=== PATIENT | female | born 1960 | race Caucasian/White ===

== ENCOUNTER 2017-03-13 19:46 | Inpatient (IN) ==
[2017-03-13] MEDS ORDERED: NS 1,000 ML IV ONE (20:38)
--- NOTE | 2017-03-13 21:00 | PROVIDER DOCUMENTATION ---
HPI-Abdominal Pain/GI Problem - General Chief Complaint: Rectal Bleeding Stated Complaint: RECTAL BLEEDING Time Seen by Provider: 03/13/17 20:20 Source: patient Allergies/Adverse Reactions: Patient Allergies Allergy/AdvReac Type Severity Reaction Status Date / Time Sulfa (Sulfonamide Allergy SWELLING Verified 02/02/15 21:30 Antibiotics) Home Medications: Home Medication List Medication Instructions Recorded Confirmed Last Taken Type Estrogens, Esterified [Menest] 0.625 mg PO HS 02/02/15 02/02/15 02/01/15 History Losartan Potassium 100 mg PO HS 02/02/15 02/02/15 02/01/15 History Clopidogrel Bisulfate [Clopidogrel] 03/13/17 Unknown History - History of Present Illness-ABD Nature of Presenting Problems: 56 year old WF presents today with c/o LLQ abd pain with diarrhea x 4 today, 2 of which had jenny, bright red blood mixed in with it. Pt reports the abdominal pain is crampy in nature, non-radiating and worsens before the diarrhea. Pt reports associated fatigue since onset of diarrhea, denies fever/chills/nausea/ vomiting. Abdominal Pain Onset Location: reports: LLQ Pain Radiation: reports: no radiation Quality of Pain: reports: cramping Severity in ED: reports: mild Onset/Duration: reports: this morning Timing: reports: still present, improving, intermittent, getting worse Exposure to sick contacts?: No Modifying Factors: improves with: nothing Associated Symptoms: reports: diarrhea, weakness Last BM: this afternoon Dark Stools Present?: reports: none noticed, bright red blood. denies: maroon, black, tarry Rectal Bleeding: reports: blood mixed with stool, bloody diarrhea # of Diarrhea Episodes: 4 Rectal Pain: reports: none # of Vomiting Episodes: 0 Review of Systems - Adult - REVIEW OF SYSTEMS - ADULT Constitutional: reports: see HPI, ashlee. denies: chills, fever Eyes: reports: no symptoms reported. denies: discharge, blurred vision, double vision Ears, Nose, Mouth & Throat: reports: no symptoms reported. denies: ear discharge, ear pain, nose pain, loose teeth, throat pain, throat swelling Cardiovascular: reports: no symptoms reported. denies: chest pain, palpitations , syncope Respiratory: reports: no symptoms reported. denies: chronic cough, cough, shortness of breath, wheezing Gastrointestinal: reports: see HPI, abdominal pain, diarrhea, rectal bleeding. denies: hematemesis, constipation, difficulty swallowing, frequent heartburn, nausea, poor appetite, vomiting Genitourinary: reports: no symptoms reported. denies: dysuria, hematuria, urgency Musculoskeletal: reports: no symptoms reported. denies: bone pain, joint pain, joint swelling, neck pain Integumentary: reports: no symptoms reported. denies: hives, itching, skin sores/ulcer Neurological: reports: no symptoms reported. denies: ataxia, numbness, paresthesia, syncope Psychiatric: reports: no symptoms reported Endocrine: reports: no symptoms reported Hematologic/Lymphatic: reports: no symptoms reported Allergic/Immunologic: reports: no symptoms reported All Other Systems: Reviewed and Negative Past History - Adult - PAST MEDICAL HISTORY-ADULT Review of Records: reports: Old Records Reviewed, Nursing Assessment Review, Medications Reviewed, Social history reviewed & non-contributory. Major Childhood Illnesses: reports: denies history Cardiovascular: reports: HTN Respiratory: reports: denies history Gastrointestinal: reports: polyps Obstetrical/Gynecological: reports: denies history Genitourinary: reports: denies history Musculoskeletal: reports: denies history Neurological: reports: CVA Endocrine/Immune: reports: denies history Other Conditions: reports: denies history - PRIOR SURGERIES/PROCEDURES Surgical/Procedure History: reports: hysterectomy, other (sx for brain aneurysm) - IMMUNIZATION STATUS Childhood Immunizations: See Nurse Assessment Flu Vaccine: See Nurse Assessment - FAMILY HISTORY Family History: reviewed, not pertinent - SOCIAL HISTORY Smoking: quit greater than 1 year, cigarettes Substance Use: none/never Alcohol Use Frequency: never Physical Exam-General - PHYSICAL EXAM-ADULT Initial Vital Signs Reviewed: Yes - CONSTITUTIONAL General Appearance: appears well, alert, no apparent distress. negative: mild distress, moderate distress, severe distress - EYES Eyes: pink conjunctivae. negative: conjuctival exudate, pale conjunctivae, photophobia, sclera injected, scleral icterus, subconjunctival hemorrhage - HEAD, EARS, NOSE, MOUTH & THROAT HENMT: normocephalic/atraumatic, moist mucous membranes, normal ENT inspection - NECK Neck: non-tender, full range of motion, supple, normal inspection. negative: C- spine tenderness, limited range of motion, tender lateral, tender midline - RESPIRATORY Respiratory: chest non-tender, lungs clear, normal breath sounds, no pleuratic chest pain, no respiratory distress, no accessory muscle use. negative: respiratory distress, decreased breath sounds, accessory muscle use, crackles, rales, rhonchi, stridor, wheezing - CARDIOVASCULAR Cardiovascular: normal peripheral pulses, regular rate, rhythm - GASTROINTESTINAL (ABDOMEN) Abdominal Exam: normal bowel sounds, soft, tenderness (LLQ). negative: non tender, distended, guarding, rigid, rebound, hernia, mass, hepatomegaly, spleenomegaly, McBurney's point tenderness, Martinez's sign, obturator sign, prominent aortic pulsations, psoas, Rovsing's sign - MUSCULOSKELETAL Back Exam: normal inspection, no CVA tenderness, no vertebral tenderness. negative: CVA tenderness, decreased range of motion, swelling, vertebral tenderness Extremity: normal range of motion, non-tender, normal gait, normal inspection, no pedal edema, no calf tenderness, normal capillary refill Peripheral Pulses: radial (R): 3+, radial (L): 3+, dorsalis-pedis (R): 3+, dorsalis-pedis (L): 3+ - SKIN Integumentary: normal color, normal turgor, warm/dry. negative: pallor, petechiae, purpura, rash - NEUROLOGIC Neurologic: grossly normal, no motor/sensory deficits - PSYCHIATRIC Psych/Mental Status: normal mood/affect, normal thought content, normal thought process, oriented x 3 Progress - PLAN OF CARE/RESULTS Progress/Plan/Lab Results: Vital Signs - 8 hr 03/13/17 20:03 Temperature 98 F Pulse Rate 84 Respiratory Rate 18 Blood Pressure 145/94 O2 Sat by Pulse Oximetry 98 Orders Category Date Time Status Orthostatic Vital Signs NOW Care 03/13/17 20:38 Active Saline Loc DIRECTED Care 03/13/17 20:[address] ABD/PELVIS W/ IV CONT ONLY [CT] Stat Exams 03/13/17 20:38 Ordered CBC WITH ELECTRONIC DIFF [HEME] Stat Lab 03/13/17 20:37 Ordered COMPREHENSIVE METABOLIC PANEL [CHEM] Stat Lab 03/13/17 20:37 Ordered OCCULT BLOOD SCREEN STOOL PL Stat Lab 03/13/17 20:37 Uncollected PROTIME WITH INR PL [COAG] Stat Lab 03/13/17 20:[address] [COAG] Stat Lab 03/13/17 20:37 Ordered TYPE & SCREEN [BBK] Stat Lab 03/13/17 20:37 Ordered 0.9% Sodium Chloride Inj [Ns] 1,000 ml Med 03/13/17 20:38 Active IV 999 mls/hr Laboratory Tests 03/13/17 03/13/17 03/13/17 20:37 20:37 20:37 WBC 9.43 RBC 4.45 Hgb 13.3 Hct 38.7 MCV 87.0 MCH 29.9 MCHC 34.4 RDW Std Deviation 13.1 Plt Count 303 MPV 9.1 Immature Gran % (Auto) 0.1 Neut % (Auto) 73.4 Lymph % (Auto) 20.3 L [place] % (Auto) 5.8 Eos % (Auto) 0.2 Baso % (Auto) 0.2 Immature Gran # (Auto) 0.01 Neut # (Auto) 6.92 H Lymph # (Auto) 1.91 [place] # (Auto) 0.55 Eos # (Auto) 0.02 Baso # (Auto) 0.02 PT 12.6 INR 0.91 APTT (Factor Assay) 29.2 Sodium 136 Potassium 3.8 Chloride 97 L Carbon Dioxide 24 L Anion Gap 16 BUN 11 Creatinine 0.6 Estimated GFR/1.73 m2 > 60 BUN/Creatinine Ratio 18 Glucose 117 H Calculated Osmolality 272 Calcium 10.0 Total Bilirubin 0.40 AST 22 ALT 23 Alkaline Phosphatase 88 Total Protein 7.7 Albumin 4.4 Globulin 3.0 Albumin/Globulin Ratio 1.0 Blood Type 03/13/17 20:37 WBC RBC Hgb Hct MCV MCH MCHC RDW Std Deviation Plt Count MPV Immature Gran % (Auto) Neut % (Auto) Lymph % (Auto) [place] % (Auto) Eos % (Auto) Baso % (Auto) Immature Gran # (Auto) Neut # (Auto) Lymph # (Auto) [place] # (Auto) Eos # (Auto) Baso # (Auto) PT INR APTT (Factor Assay) Sodium Potassium Chloride Carbon Dioxide Anion Gap BUN Creatinine Estimated GFR/1.73 m2 BUN/Creatinine Ratio Glucose Calculated Osmolality Calcium Total Bilirubin AST ALT Alkaline Phosphatase Total Protein Albumin Globulin Albumin/Globulin Ratio Blood Type A POSITIVE Orders Category Date Time Status Orthostatic Vital Signs NOW Care 03/13/17 20:38 Active Saline Loc DIRECTED Care 03/13/17 20:[address] ABD/PELVIS W/ IV CONT ONLY [CT] Stat Exams 03/13/17 20:38 Taken CBC WITH ELECTRONIC DIFF [HEME] Stat Lab 03/13/17 20:37 Completed COMPREHENSIVE METABOLIC PANEL [CHEM] Stat Lab 03/13/17 20:[address] Com[address]IME WITH INR PL [COAG] Stat Lab 03/13/17 20:[address] [COAG] Stat Lab 03/13/17 20:37 Completed TYPE & SCREEN [BBK] Stat Lab 03/13/17 20:37 Results UA NIMS W/REFLEX CULT PL [URINALYSIS] Stat Lab 03/13/17 23:13 Ordered 0.9% Sodium Chloride Inj [Ns] 1,000 ml Med 03/13/17 20:38 Discontinued IV 999 mls/hr EKG [EKG] Stat Ther 03/13/17 23:13 Ordered Vital Signs - 24 hr 03/13/17 20:03 03/13/17 21:09 Temperature 98 F Pulse Rate 84 73 Respiratory Rate 18 Blood Pressure 145/94 161/88 O2 Sat by Pulse Oximetry 98 Laboratory Tests 03/13/17 03/13/17 03/13/17 20:37 20:37 20:37 WBC 9.43 RBC 4.45 Hgb 13.3 Hct 38.7 MCV 87.0 MCH 29.9 MCHC 34.4 RDW Std Deviation 13.1 Plt Count 303 MPV 9.1 Immature Gran % (Auto) 0.1 Neut % (Auto) 73.4 Lymph % (Auto) 20.3 L [place] % (Auto) 5.8 Eos % (Auto) 0.2 Baso % (Auto) 0.2 Immature Gran # (Auto) 0.01 Neut # (Auto) 6.92 H Lymph # (Auto) 1.91 [place] # (Auto) 0.55 Eos # (Auto) 0.02 Baso # (Auto) 0.02 PT 12.6 INR 0.91 APTT (Factor Assay) 29.2 Sodium 136 Potassium 3.8 Chloride 97 L Carbon Dioxide 24 L Anion Gap 16 BUN 11 Creatinine 0.6 Estimated GFR/1.73 m2 > 60 BUN/Creatinine Ratio 18 Glucose 117 H Calculated Osmolality 272 Calcium 10.0 Total Bilirubin 0.40 AST 22 ALT 23 Alkaline Phosphatase 88 Total Protein 7.7 Albumin 4.4 Globulin 3.0 Albumin/Globulin Ratio 1.0 Urine Source Urine Color Urine Clarity Urine pH Ur Specific [place] Urine Protein Urine Ketones Urine Blood Urine Nitrite Urine Bilirubin Urine Urobilinogen Urine Microscopic RBC Urine WBC Urine Microscopic WBC Ur Epithelial Cells Urine Bacteria Urine Glucose Blood Type Antibody Screen 03/13/17 03/13/17 20:37 21:00 WBC RBC Hgb Hct MCV MCH MCHC RDW Std Deviation Plt Count MPV Immature Gran % (Auto) Neut % (Auto) Lymph % (Auto) [place] % (Auto) Eos % (Auto) Baso % (Auto) Immature Gran # (Auto) Neut # (Auto) Lymph # (Auto) [place] # (Auto) Eos # (Auto) Baso # (Auto) PT INR APTT (Factor Assay) Sodium Potassium Chloride Carbon Dioxide Anion Gap BUN Creatinine Estimated GFR/1.73 m2 BUN/Creatinine Ratio Glucose Calculated Osmolality Calcium Total Bilirubin AST ALT Alkaline Phosphatase Total Protein Albumin Globulin Albumin/Globulin Ratio Urine Source CLEAN CATCH Urine Color YELLOW Urine Clarity CLEAR Urine pH 7.0 Ur Specific [place] 1.005 Urine Protein NEGATIVE Urine Ketones NEGATIVE Urine Blood TRACE Urine Nitrite NEGATIVE Urine Bilirubin NEGATIVE Urine Urobilinogen NORMAL Urine Microscopic RBC <10 Urine WBC NEGATIVE Urine Microscopic WBC <10 Ur Epithelial Cells <10 Urine Bacteria 2+ Urine Glucose NEGATIVE Blood Type A POSITIVE Antibody Screen NEGATIVE 2358: Dr. Mirza spoke with Dr. Vásquez, he will accept transfer to and will call back. Result Diagrams: 03/13/17 20:37 03/13/17 20:37 - REASSESSMENT Reassessment #1 Time Reassessed: 23:16 Status: other (Notified patient of CT findings and need to transfer for specialty care, agrees.) Reassessment #2 Time Reassessed: 23:42 Status: other (notified patinet of discussion with vascular surgeon/admission to hospitalist. Pt verbalized understanding.) - CT/MRI 1 CT Study: Abdomen, Pelvis Impression: Abnormal (Received call from Bindu with [facility]: non- occlusive thrombus within portal venous system straddeling the biforcation; see report for additional findings.) - CONSULTS/PCP/HOSPITALIST Notification #1 *Consult/PCP/Hospitalist*: Dr. Saleh Time Discussed: 23:15 Consult Disposition: other (Reviewed H&P, CT findings, recommends transfer to [facility].) #2 Consult: Dr. Trevizo-Vascular Surgeon [facility] Time Discussed: 23:41 Reason/Comments: Dr. Mirza spoke with Dr. Trevizo Consult Disposition: other (this is not operable, admit to hospitalist for heparin therapy.) #3 Consult: Dr. Mirza spoke with Hospitalist from [facility], refused transfer, admit your hosp Time Discussed: 23:54 Departure - Departure Time of Disposition Decision: 23:15 DIAGNOSIS: Thrombus, Rectal bleeding Abdominal pain Qualifiers: Abdominal location: left lower quadrant Qualified Code(s): R10.32 - Left lower quadrant pain Diarrhea Qualifiers: Diarrhea type: functional diarrhea Qualified Code(s): K59.1 - Functional diarrhea Disposition: ADMITTED INPATIENT 09 Certified Medical Emergency: Emergent Condition: Stable Referrals and Follow-Ups: Alejo Arroyo MD [Primary Care Provider] - - Critical Care Note This patient required my direct & personal management of CC.: No Attestation - Physician/ MARY Attestation Patient care was provided by Advanced Practice Provider:: Yes Advanced Practice Provider:: Adam Dillard Advanced Practice Provider documentation review:: The Mid-level provider documentation, treatment plan and medical decision making was reviewed by the physician who agrees with all treatment and medical decision making by the MLP.
[2017-03-13 21:20] LABS: MANUAL DIFF NEEDED? NO
[2017-03-13 21:23] LABS: BASO% 0.2 % (0.0-0.8); EOS# 0.02 X1000 (0.0-0.7); EOS% 0.2 % (0.0-10.0); HEMATOCRIT 38.7 % (37.0-47.0); HEMOGLOBIN 13.3 g/dL (12.0-16.0); IMM GRAN# 0.01 X1000 (0.0-0.04); IMM GRAN% 0.1 % (0.0-0.5); LYMPH# 1.91 X1000 (1.2-3.4); LYMPH% 20.3 % (20.5-51.1); MCH 29.9 PG (27-31); MCHC 34.4 g/dL (33-37); MONO# 0.55 X1000 (0.11-0.59); MONO% 5.8 % (1.7-9.3); MPV 9.1 FL (7.4-10.4); NEUT% 73.4 % (42.2-75.2); PLT 303 X1000 (130-400); RBC 4.45 XMIL (4.2-5.4)
[2017-03-13 21:59] LABS: AGAP 16; ALBUMIN 4.4 g/dL (3.5-5.0); ALKALINE PHOSPHATASE 88 U/L (32-104); BUN 11 mg/dL (8-22); CHLORIDE 97 mmol/L (98-107); COSMO 272; GOT 22 U/L (10-30); GPT 23 U/L (10-36); POTASSIUM 3.8 mmol/L (3.5-5.1); SODIUM 136 mmol/L (136-145); TCO2 24 mmol/L (25-35); TOTAL PROTEIN 7.7 g/dL (6.3-8.3)
[2017-03-13 22:12] LABS: INR 0.91 (0.86-1.15); PROTIME 12.6 Seconds (12.1-15.5)
[2017-03-13 22:13] LABS: PTT PL 29.2 Seconds (22.6-43.9)
[2017-03-13 23:56] LABS: BILIRUBIN URINE NEGATIVE (NEGATIVE); BLOOD URINE TRACE (NEGATIVE); CLARITY CLEAR (CLEAR); COLOR YELLOW; GLUCOSE URINE NEGATIVE (NEGATIVE); LEUKOCYTES URINE NEGATIVE (NEGATIVE); NITRITE URINE NEGATIVE (NEGATIVE); PROTEIN URINE NEGATIVE (NEGATIVE); SP GRAVITY URINE 1.005; UROBILINOGEN URINE NORMAL
[2017-03-13 23:57] LABS: URINE CULTURE PL NEEDED? YES; URINE EPITHELIAL CELLS <10 /HPF (<10); URINE RBC <10 /HPF (<10); URINE SOURCE CLEAN CATCH; URINE WBC <10 /HPF (<10)
--- NOTE | 2017-03-14 00:36 | EKG Report ---
Test Performed on : 03/13/2017 11:14:10 PM Test Reason : CP Blood Pressure : / mmHG Vent. Rate : 080 BPM Atrial Rate : 080 BPM P-R Int : 146 ms QRS Dur : 078 ms QT Int : 366 ms P-R-T Axes : 069 031 040 degrees QTc Int : 422 ms Normal sinus rhythm. Normal ECG When compared with ECG of 13-MAR-2017 23:11, (Unconfirmed) Questionable change in QRS axis Nonspecific T wave abnormality no longer evident in Anterolateral leads Unconfirmed Result
[2017-03-14] MEDS ORDERED: NS 1,000 ML IV ONE ×3 (01:10→01:46)
[2017-03-14] MEDS ORDERED: TYLENOL PO PRN (01:26)
--- NOTE | 2017-03-14 01:27 | ED EKG INTERP ---
This chart was entered by Mookie Pfeiffer Scribe, acting as scribe for Adam Dillard CRNP. EKG Interpretation - EKG Time of EKG reading by physician:: 23:16 EKG Read and Signed by:: Mookie Mirza EKG Interpretation (*Must complete 3 of following elements*): Normal Rate: 80 Rhythm: NSR [place]: normal QRS: normal [place] Interval: normal ST Wave: normal Comments: normal ekg This chart was documented by the indicated scribe, (Mookie Pfeiffer Scribe) and accurately reflects the services I performed and decisions made by , Adam Dillard CRNP, as attested by the provider's signature.
[2017-03-14] MEDS ORDERED: ZOFRAN IV PRN (01:46)
[2017-03-14] MEDS ORDERED: ATIVAN IV ONE (01:53)
[2017-03-14] MEDS: HEPARIN 25,000 UNITS/D5W 25,000 UNIT/250 ML IV.SOLN IV SCH ×2 (03:00→07:27)
[2017-03-14] MEDS ORDERED: HEPARIN IV ONE (07:30)
--- NOTE | 2017-03-14 08:35 | Diag Imaging Result Document ---
PROCEDURE NAME: CT ABD/PELVIS W/ IV CONT ONLY - 03/13/2017 CT ABDOMEN AND PELVIS WITH IV CONTRAST: COMPARISON: None available. FINDINGS: There is nonocclusive thrombus in branches of the portal vein near the nils hepatis. The liver parenchyma is grossly unremarkable. There are several bilateral renal cortical defects suggesting scarring. There is 1 focus of hypoperfusion involving the cortex of the upper medial kidney on the right. This focus of hypoperfusion may represent a more recent subacute renal cortical infarct. There is no surrounding inflammatory stranding, however. There is an incidental circumaortic left renal vein. There is mild patchy aortic atherosclerotic calcification. The major branches of the aorta appear to be patent, however. There is nonspecific mild thickening of the descending and sigmoid colonic wall with subtle pericolonic fat stranding consistent with colitis. The most likely etiology is infectious or inflammatory. There is no evidence of bowel obstruction. The remainder of the solid viscera of the abdomen and pelvis and the remainder of the GI tract is essentially unremarkable. IMPRESSION: 1. Nonspecific colitis involving the descending and sigmoid colon that is probably infectious or perhaps inflammatory. 2. Nonocclusive thrombus in the branches of the portal vein at the nils hepatis. 3. 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 A more recent ischemic event here is possible. 4. Other incidental/nonacute findings detailed above.
--- NOTE | 2017-03-14 13:39 | HISTORY AND PHYSICAL ---
PRIMARY CARE PHYSICIAN: Dr. Alejo Arroyo. CHIEF COMPLAINT: Diarrhea, bloody stool. HISTORY OF PRESENT ILLNESS: This is a 56-year-old female with a history of hypertension and prior CVA with no residual. She presented to the emergency room after having 3 diarrhea stools, 2 with bright red blood. She states she was in her normal state of health until yesterday when diarrhea began. She denies any abdominal pain, fever, chills, nausea, vomiting, or prior episodes of blood in her stool. CT scan of the abdomen and pelvis was performed which revealed nonspecific colitis . Nonocclusive thrombus in the branches of the portal vein at the nils hepatis, She was given IV hydration in the ER and admitted for further evaluation and treatment. PAST MEDICAL HISTORY: Hypertension, CVA 3 years ago with no residual, brain aneurysm. PAST SURGICAL HISTORY: Denies. SOCIAL HISTORY: She denies alcohol, tobacco, or illicit drug use. ALLERGIES: Sulfa which causes swelling. HOME MEDICATIONS: Menest estrogen 0.625 at bedtime, losartan 100 mg at bedtime. REVIEW OF SYSTEMS: A 14 point review of systems is discussed with patient with pertinent positives being bloody diarrhea. She denied chest pain, palpitations, dizziness , syncope, shortness of breath, cough, fever, chills, PND orthopnea, abdominal pain, nausea , vomiting, constipation, hematuria, dysuria, frequency, or urgency. PHYSICAL EXAMINATION: GENERAL: This is a 56-year-old female who is sitting up in the bed, in no distress. VITAL SIGNS: Blood pressure is 149/73 with a heart rate of 80, respirations are 19, temperature is 97.7 degrees temporal, with room air saturations of 96 to 98%. CARDIOVASCULAR: Regular rate and rhythm. S1 and S2 appreciated. No rubs, murmurs, or gallops. PULMONARY: Breath sounds are clear with no increased work of breathing noted. GASTROINTESTINAL: Abdomen is soft, nontender, nondistended with bowel sounds in all 4 quadrants. BACK: No CVAT. No spine tenderness. MUSCULOSKELETAL: Good range of motion to joints. EXTREMITIES: No clubbing, cyanosis, or edema. Calves are nontender. Pulses are palpable x4. NEUROLOGIC: She is alert and oriented x3. DIAGNOSTICS: WBC is 9.4, with a hemoglobin of 13.3, hematocrit of 38.7, and platelets of 303,000. Sodium is 136, potassium 3.8, BUN 11, creatinine 0.6 with a glucose of 117. Urinalysis is essentially negative. CT scan of the abdomen and pelvis revealed: 1. A nonocclusive thrombus in the branches of the portal vein at the nils hepatis. 2. 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 More recent ischemic event hears possible. 3. Nonspecific colitis involving the descending and sigmoid colon. This is probably infectious or perhaps inflammatory. ASSESSMENT AND PLAN: This is a 56-year-old female who presented with bloody diarrhea and was found to have a nonocclusive thrombus of the portal vein. 1. Portal vein thrombosis. Heparin bolus and heparin infusion. 2. GI bleed - No further diarrhea or hematochezia, will guiac all stools 3. Nonspecific colitis in the descending and sigmoid colon, will start Cipro and Flagyl 4. Hypertension. We will continue her losartan. 5. The patient has been on estrogen. Of course, this will be held. Further treatments pending hospital course. 6.Renal cortical defects suggesting prior infarct, aware. Urology follow up 7. GI prophylaxis - Protonix Dictated by UMESH Gonzalez for Tarun Workman MD cc: UMESH Gonzalez MD [facility]
[2017-03-14 13:48] LABS: HEMATOCRIT 36.1 % (37.0-47.0); HEMOGLOBIN 12.2 g/dL (12.0-16.0); MCH 29.6 PG (27-31); MCHC 33.8 g/dL (33-37); MCV 87.6 FL (81-99); RBC 4.12 XMIL (4.2-5.4)
[2017-03-14] MEDS: CIPRO 400 MG/D5W 400 MG/200 ML IVPB IV SCH (14:05)
[2017-03-14 14:39] LABS: AGAP 15; ALBUMIN 3.9 g/dL (3.5-5.0); ALKALINE PHOSPHATASE 82 U/L (32-104); BUN 5 mg/dL (8-22); CALCIUM 8.5 mg/dL (8.8-10.2); CHLORIDE 102 mmol/L (98-107); COSMO 275; GOT 17 U/L (10-30); GPT 16 U/L (10-36); MAGNESIUM 1.6 mg/dL (1.5-2.7); POTASSIUM 3.4 mmol/L (3.5-5.1); SODIUM 139 mmol/L (136-145); TCO2 22 mmol/L (25-35); TOTAL PROTEIN 6.5 g/dL (6.3-8.3)
[2017-03-14] MEDS: FLAGYL 500 MG/NS 500 MG/100 ML IVPB IV SCH ×2 (15:16→20:11)
[2017-03-14] MEDS: TYLENOL PO PRN (23:05)
[2017-03-15] MEDS: HEPARIN 25,000 UNITS/D5W 25,000 UNIT/250 ML IV.SOLN IV SCH ×2 (01:32→22:38)
[2017-03-15] MEDS: FLAGYL 500 MG/NS 500 MG/100 ML IVPB IV SCH ×4 (01:32→21:25)
[2017-03-15] MEDS: CIPRO 400 MG/D5W 400 MG/200 ML IVPB IV SCH ×2 (01:33→13:05)
[2017-03-15 06:04] LABS: HEMATOCRIT 35.2 % (37.0-47.0); HEMOGLOBIN 11.7 g/dL (12.0-16.0); MCH 29.5 PG (27-31); MCHC 33.2 g/dL (33-37); MCV 88.7 FL (81-99); MPV 9.2 FL (7.4-10.4); RBC 3.97 XMIL (4.2-5.4)
[2017-03-15 06:09] LABS: AGAP 12; BUN 5 mg/dL (8-22); CALCIUM 8.5 mg/dL (8.8-10.2); CHLORIDE 101 mmol/L (98-107); COSMO 275; POTASSIUM 3.6 mmol/L (3.5-5.1); SODIUM 139 mmol/L (136-145); TCO2 26 mmol/L (25-35)
[2017-03-15] MEDS: TYLENOL PO PRN ×2 (08:45→21:25)
--- NOTE | 2017-03-15 08:45 | PROGRESS NOTE ---
DATE: 03/15/2017 SUBJECTIVE: Patient without new complaints today. Denies any chest pain, palpitations. Notes that she had 1 bowel movement yesterday but did not notice any blood. OBJECTIVE: Vital signs: Temperature 97, pulse 82, respiratory rate 18, BP 134/73, saturating 97% on room air. General: Patient is awake, alert. She is currently in no real respiratory distress. Does complain of abdominal pain similar to what she was admitted with. Denies any fevers or chills. Neck: Supple. CV: Regular rate. Chest: Relatively clear. Abdomen: Soft. Diffusely tender. No masses. No hepatosplenomegaly. Extremities: Moves all extremities. Neurologic: No focal changes. Skin: Warm and dry. No rashes. LABS: WBC is 12. Hemoglobin and hematocrit are 11 and 35. CMP normal. ASSESSMENT: 1. 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 2. Nonspecific colitis with heme-positive stool x1. 3. Hypertension. 4. Hormone replacement. The patient had been on estrogen prior to admission. Will stop this. PLAN: We will continue patient on antibiotics. Continue her on heparin for the time being. She certainly will need endoscopy. This will be arranged as soon as possible, although is not emergent. We will continue to follow. Further orders as needed. cc: Tarun Workman MD
[2017-03-15] MEDS ORDERED: COZAAR PO ONE (21:40)
[2017-03-16] MEDS: HEPARIN 25,000 UNITS/D5W 25,000 UNIT/250 ML IV.SOLN IV SCH (00:14)
[2017-03-16] MEDS: FLAGYL 500 MG/NS 500 MG/100 ML IVPB IV SCH ×5 (01:23→19:45)
[2017-03-16] MEDS: CIPRO 400 MG/D5W 400 MG/200 ML IVPB IV SCH ×2 (01:23→13:58)
[2017-03-16 06:04] LABS: HEMATOCRIT 35.1 % (37.0-47.0); HEMOGLOBIN 11.8 g/dL (12.0-16.0); MCH 29.7 PG (27-31); MCHC 33.6 g/dL (33-37); MCV 88.4 FL (81-99); MPV 8.9 FL (7.4-10.4); RBC 3.97 XMIL (4.2-5.4)
[2017-03-16 06:56] LABS: AGAP 13; ALBUMIN 3.7 g/dL (3.5-5.0); ALKALINE PHOSPHATASE 73 U/L (32-104); BUN 4 mg/dL (8-22); CHLORIDE 103 mmol/L (98-107); COSMO 279; GOT 14 U/L (10-30); GPT 14 U/L (10-36); POTASSIUM 3.5 mmol/L (3.5-5.1); SODIUM 141 mmol/L (136-145); TCO2 24 mmol/L (25-35)
[2017-03-16 06:57] LABS: CALCIUM 8.7 mg/dL (8.8-10.2); TOTAL PROTEIN 6.3 g/dL (6.3-8.3)
[2017-03-16] MEDS: TYLENOL PO PRN ×3 (08:11→21:19)
--- NOTE | 2017-03-16 13:04 | PROGRESS NOTE ---
DATE: 03/16/2017 SUBJECTIVE: This patient states that she is feeling fine. She is not complaining of any specific problem. She denies nausea, vomiting, diarrhea, constipation. No bowel movement today or yesterday. We will continue to monitor. OBJECTIVE: Vital Signs: Temperature 98.3 degrees, pulse 88, respiratory rate 18, blood pressure 143/80 and oxygen saturation 98 on room air. HEENT: Head normocephalic. No trauma. PERRLA. Neck: Supple. No JVD. Central trachea. No masses. Chest: Clear to auscultation. No wheezing or rales. Abdomen: Soft. Diffuse tenderness. No masses. Extremities: No edema. No clubbing. No cyanosis. Neurological examination: The patient is alert and oriented x3. No focal neurological deficits. LABORATORY: WBC 8.7, hemoglobin 11.8, hematocrit 35.1, platelets 243. Sodium 141, potassium 3.5, chloride 103, bicarbonate 24. BUN 4, creatinine 0.7, glucose 112, calcium 8.7. ASSESSMENT: 1. 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 2. Nonspecific colitis with heme-positive stool times one. 3. Hypertension. 4. Hormone replacement that has been stopped PLAN: Will continue this patient with antibiotics, ciprofloxacin and metronidazole, and also we will continue this patient on heparin drip. Hemoglobin and hematocrit has been stable. This patient should be scoped as soon as possible. We are doing arrangements right now at this moment. This patient is stable. cc: Jerry Choi MD
[2017-03-16] MEDS: COZAAR PO SCH (21:15)
[2017-03-17] MEDS: CIPRO 400 MG/D5W 400 MG/200 ML IVPB IV SCH (01:04)
[2017-03-17] MEDS: FLAGYL 500 MG/NS 500 MG/100 ML IVPB IV SCH ×2 (03:14→08:10)
[2017-03-17 06:42] LABS: MANUAL DIFF NEEDED? NO
[2017-03-17 06:49] LABS: BASO% 0.3 % (0.0-0.8); EOS# 0.09 X1000 (0.0-0.7); EOS% 1.3 % (0.0-10.0); HEMATOCRIT 36.5 % (37.0-47.0); HEMOGLOBIN 12.3 g/dL (12.0-16.0); IMM GRAN# 0.01 X1000 (0.0-0.04); IMM GRAN% 0.1 % (0.0-0.5); LYMPH# 1.78 X1000 (1.2-3.4); LYMPH% 25.4 % (20.5-51.1); MCH 29.6 PG (27-31); MCHC 33.7 g/dL (33-37); MCV 87.7 FL (81-99); MONO# 0.78 X1000 (0.11-0.59); MONO% 11.1 % (1.7-9.3); MPV 9.3 FL (7.4-10.4); NEUT% 61.8 % (42.2-75.2); PLT 277 X1000 (130-400); RBC 4.16 XMIL (4.2-5.4)
[2017-03-17 07:23] LABS: AGAP 12; BUN 4 mg/dL (8-22); CALCIUM 9.3 mg/dL (8.8-10.2); CHLORIDE 103 mmol/L (98-107); COSMO 281; SODIUM 142 mmol/L (136-145); TCO2 27 mmol/L (25-35)
--- NOTE | 2017-03-17 10:10 | PROGRESS NOTE ---
DATE: 03/17/2017 SUBJECTIVE: This patient is feeling fine. Vital signs are stable. Hemoglobin and hematocrit are stable as well. But, this patient came in with a GI bleed and also we found a nonocclusive thrombosis in the branches of the portal veins and this patient has been on anticoagulation with heparin drip for 4 days now. She needs to be evaluated by gastroenterology department. 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 This patient will be transferred to [facility] for evaluation for gastroenterology. If they decide not to do a colonoscopy or upper endoscopy at this moment, probably this patient should be discharged on anticoagulation. OBJECTIVE: Vital Signs: Temperature 97.9 degrees, pulse 82, respiratory rate 16, blood pressure 143/74, oxygen saturation 98 on room. HEENT: Head normocephalic. No trauma. PERRLA. Neck: Supple. No JVD. No masses. Central trachea. Chest: Clear to auscultation. No wheezing. No rales. Abdomen: Soft. Diffuse tenderness. No masses. Extremities: No edema. No clubbing. No cyanosis. Neurological: The patient is alert and oriented x3. No focal neurological deficits. LABORATORY: WBC 7, hemoglobin 12.3, hematocrit 36.5, platelets 277,000. Sodium 142, potassium 4.0, chloride 103, bicarbonate 27, BUN 4, creatinine 0.6, glucose 110, calcium 9.3. ASSESSMENT: 1. 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 2. Nonspecific colitis with heme positive stools. This patient was admitted because of GI bleed. 3. Hypertension. 4. Hormone replacement. That has been stopped. PLAN: Like I mentioned before, this patient will be transferred to [facility]. This patient will be probably on chronic anticoagulation. She came in because of GI bleed and because of a nonocclusive thrombose in the branches of the portal vein she was placed on heparin drip. Vital signs and lab work have been stable but this patient should be scoped at some point. This patient is stable. cc: Jerry Choi MD
[2017-03-17] MEDS ORDERED: GOLYTELY PO ONE (14:00)
[2017-03-17] MEDS: ZOSYN 3.375 GM/NS 3.375 GM/50 ML IVPB IV SCH ×2 (14:30→21:32)
--- NOTE | 2017-03-17 15:17 | CONSULTATION ---
DATE OF CONSULTATION: 03/17/2017 REASON FOR REFERRAL: Rectal bleeding. HISTORY OF PRESENT ILLNESS: This is a 56-year-old, white female, who reports one episode of bright red rectal bleeding on Wednesday. She had denied any associated diarrhea or abdominal pain. She had reported about urgency and had bright red blood. She was admitted to the hospital for further evaluation. A CT scan showed nonspecific colitis. It also showed a nonocclusive thrombus in the branches of the portal vein at the nils hepatitis. She has been started on heparin drip. She denies any further GI bleeding. She denies abdominal pain. She does report a history of reflux and takes Zantac as needed. She denies fever. She has a history of an EGD and colonoscopy last done in [address] Hanley. Colonoscopy showed a single polyp in the hepatic flexure. At that time, she was recommended to have a follow-up colonoscopy in 5 years. Pathology showed a tubular adenomatous polyp. She had an EGD in 2013 that showed a hiatal hernia. Otherwise normal stomach and normal duodenum. PAST MEDICAL HISTORY: Hypertension, history of TIA, history of brain aneurysm. PAST SURGICAL HISTORY: She had brain aneurysm clipped. Hysterectomy. Last EGD and colonoscopy was in 2013. ALLERGIES: Sulfa causing swelling. HOME MEDICATIONS: 1. Estrogen every night. 2. Losartan 100 mg every night. SOCIAL HISTORY: Quit tobacco use in 2011. Denies alcohol use. She is . She has 1 child. FAMILY HISTORY: Reports a family history of anorectal cancer in her mother. History of non- Hodgkin's lymphoma in her mother, and her father from a brain aneurysm. REVIEW OF SYSTEMS: Per HPI. PHYSICAL EXAMINATION: Vital Signs: Temperature 97.9 degrees, pulse 89, respirations 18, blood pressure 148/73. General: The patient is awake, alert, no acute distress. HEENT: Normocephalic, atraumatic. Pupils equal, round, reactive to light. Sclerae nonicteric. Respiratory: Lung sounds clear bilaterally. Cardiovascular: Regular rate and rhythm. Abdomen: Soft, nontender. Positive bowel sounds. Extremities: No lower extremity edema noted. Neurologic: Cranial nerves 2-12 grossly intact. The patient is awake, alert, oriented to person, place, and time. DIAGNOSTIC RESULTS: Laboratory: Hematology: White count 7.01, hemoglobin 12.3 , hematocrit 36.5, MCV 87.7, coagulation ProTime 12.6, INR 0.91. PTT 71. She is on heparin drip. Chemistry: Sodium 142, potassium 4.0, chloride 103, CO2 of 27. BUN 4, creatinine 0.6, glucose 110. She had a CT scan of the abdomen and pelvis on 03/13/2017 that showed nonspecific colitis involving the descending and sigmoid colon, possibly infectious or perhaps inflammatory. Nonocclusive thrombus in the branches of the portal vein at the nils hepatis. Renal cortical defects bilaterally. ASSESSMENT: 1. Rectal bleeding. 2. Nonspecific colitis. 3. Non-occlusive clot in the portal vein. 4. Anticoagulation therapy. PLAN: Continue supportive care. Continue antibiotics for possible infectious colitis. Since she will most likely need to go home on anticoagulation, we will proceed with an EGD and colonoscopy to identify the cause of acute bleeding. I have discussed the procedures with the patient along with benefits and risk of the procedures and she wishes to proceed. We will need to hold heparin drip prior to the procedure. She will be prepped tonight and plan for colonoscopy and EGD on 03/18/2017. I have discussed this case with Dr. Hanley. Further plans will be made according to findings and per him. Thank you for this consultation. Dictated by UMESH Miller for Shyam Hanley MD cc: UMESH Ruiz MD [facility]
[2017-03-17] MEDS: COZAAR PO SCH (21:32)
[2017-03-18] MEDS: HEPARIN 25,000 UNITS/D5W 25,000 UNIT/250 ML IV.SOLN IV SCH (00:27)
[2017-03-18] MEDS: ZOSYN 3.375 GM/NS 3.375 GM/50 ML IVPB IV SCH ×2 (05:52→15:52)
[2017-03-18 12:48] LABS: INR 1.02; PROTIME 10.7 Seconds (9.2-11.7); PTT 26.6 Seconds (22.0-36.0)
[2017-03-18] MEDS ORDERED: VERSED ONE (13:01)
[2017-03-18] MEDS ORDERED: DIPRIVAN 1% ONE (13:01)
[2017-03-18] MEDS ORDERED: XYLOCAINE-MPF 2% ONE (13:24)
[2017-03-18] MEDS ORDERED: ANESTHESIA PB SET 88 IN 5742 ONE (13:24)
[2017-03-18] MEDS ORDERED: NS 1,000 ML ONE (13:24)
[2017-03-18 14:05] VITALS: BP 143/75
--- NOTE | 2017-03-19 05:55 | DISCHARGE SUMMARY ---
ADMISSION DATE: 03/13/2017 DISCHARGE DATE: 03/18/2017 CONSULTATIONS: Dr. Hanley with Gastroenterology. PERTINENT PROCEDURES: Abdomen and pelvis CT showed nonspecific colitis involving the descending and sigmoid colon probably infectious or perhaps inflammatory, nonocclusive thrombus in the branches of the portal vein at the nils hepatis. Several renal cortical defects bilaterally suggesting prior cortical infarctions with a focus of hypoperfusion at the medial aspect of the upper right kidney and more recent ischemic events here as possible. DISCHARGE DIAGNOSES: 1. 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 2. Nonspecific colitis with heme positive stools followed by Dr. Hanley. 3. Hypertension. 4. Hormone replacement therapy. 5. Possible infectious colitis. The patient was on antibiotics. HOSPITAL COURSE: Ms. 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 She was in her normal state of health until the day before her admission when the diarrhea began. She denied any abdominal pain, fever, chills, nausea or vomiting. CT of the abdomen and pelvis performed revealed nonspecific colitis, nonocclusive thrombus in the branches of the portal vein and nils hepatis. She was given IV hydration in the ED and admitted for further evaluation and treatment. She was started on IV antibiotics. Her hormone replacement therapy was placed on hold. The patient's hemoglobin and hematocrit on admission was 13 and 38. She remained stable throughout her hospital stay as well as hemodynamically stable. Ms. Johnson had an upper and lower GI today that did not show any bleeding. Due to her nonocclusive thrombus in the branches of the portal vein the patient was initiated on a heparin drip while she was at [facility]. We did get her transferred to [facility] where she was continued on heparin drip and evaluated by GI. Her heparin drip was placed on hold. She did have an EGD colonoscopy on 03/18/2017. There was no active bleeding found. They also felt that the patient would most likely need to go home on anticoagulation and to continue treating her for infectious colitis. They have approved the patient for discharge today along with Dr. Mayen. VITAL SIGNS: Temperature is 98 degrees, heart rate 84, respirations 18, blood pressure 145/94, and O2 is 98% on room air. DISCHARGE DIET: GI soft. Advance as tolerated. DISCHARGE MEDICATIONS: 1. Menest 0.625 mg p.o. at bedtime. 2. Levaquin 500 mg p.o. daily. 3. Losartan potassium 100 mg p.o. at bedtime. 4. Flagyl 500 mg p.o. t.i.d. 5. Xarelto 15 mg p.o. b.i.d. for 21 days then 20 mg p.o. daily. FOLLOWUP: The patient is being discharged home. She will follow up with Dr. Roman in 2-4 weeks as well as Dr. Alejo Arroyo her primary care physician in [address] Hanley in 4 weeks. The patient can return to the ED for any worsening of symptoms. TIME SPENT: Discharge time 35 minutes. Dictated by UMESH Argueta for Gustavo Park MD cc: Gustavo Park MD MTDD
--- NOTE | 2017-03-21 18:07 | OPERATIVE NOTE ---
PROCEDURE DATE: 03/18/2017 PROCEDURES PERFORMED: 1. Esophagogastroduodenoscopy. 2. Colonoscopy and biopsy. PROVIDER: Shyam Hanley MD PREOPERATIVE DIAGNOSES: Gastrointestinal bleed. POSTOPERATIVE DIAGNOSES: 1. Mild esophagitis. 2. Colitis, biopsied. HISTORY: This is a 56-year-old white female who was admitted to the hospital with GI bleed. EGD was done to identify the source of her bleeding. She has presented with vascular disease and needs long-term anticoagulation. EGD and colonoscopy were done to check the bowels to prevent her from bleeding after being put on anticoagulation. DESCRIPTION OF PROCEDURE: Informed consent was obtained from the patient. The procedure risks, benefits, and alternatives were explained in layman's terms. She understood and all of her pertinent questions were answered. The patient was brought to the endoscopy unit and was premedicated as per Anesthesia. After adequate sedation, while she was lying in the left lateral position, the gastroscope was introduced into the posterior pharynx and advanced under direct vision into the esophagus. The esophagus, in the upper and middle part, was normal. The distal esophagus, around about 39 cm from the incisors, right at the GE junction, showed evidence of mild esophagitis. It was LA grade A. No evidence of active bleeding or stigmata of recent bleed seen. No webs, rings, or varices were seen. The scope was then passed through the esophagus into the stomach. The stomach was examined both in straight and retroflexed view, which revealed normal cardia, fundus, body, and antrum. Again, no evidence of active bleeding or stigmata of recent bleed seen in the stomach. The scope was then passed through the normal pylorus into the duodenal bulb, and then 2nd part of the duodenum both appeared to be normal. The scope was then removed. The patient was then repositioned for colonoscopy. Digital rectal exam was performed, which was normal. The scope was then gently introduced into the rectum and advanced under direct vision through the parts of colon, all the way up to the cecum. The cecum was identified by the ileocecal valve and appendiceal orifice. The scope was withdrawn, paying careful attention to details. Preparation was good. The visualized portion of the colon revealed normal cecum, ascending colon, transverse colon, and descending colon. In the sigmoid colon, there was an about 10-12 cm patch of mucosa which was hyperemic, edematous, and inflamed, suggestive of colitis. The appearance was suggestive of possible infectious or ischemic colitis. Multiple biopsies were obtained. The scope was further withdrawn to the rectum. The rectum was examined both in straight and retroflexed view, which revealed no pathology. The rectal mucosa appeared to be spared. The scope was then removed. The patient tolerated the procedure well. No complications were noted. The patient was then transferred to the recovery area in stable condition. IMPRESSION: 1. Mild esophagitis, [place] grade A. 2. Colitis, sigmoid colon, most likely infectious or ischemic. Did not appear to be inflammatory bowel disease. No polyps, tumors, or cancers were seen. RECOMMENDATIONS: I would continue her on antibiotics and follow up the biopsy report. She can be started on anticoagulation because of her vascular disease. If further bleeding happens, that can be taken care of. I have explained the findings and plan to the patient. She understands and all of her pertinent questions were answered. cc: Shyam Hanley MD
== END 2017-03-18 16:44 | disposition home or self-care (01) ==
LOC: P.ED 19:46 → SUATTDRO 19:47 → P.ICU 03-14 02:31 → P.MEDSURG 03-14 16:17 → 3N 03-17 11:26
PROVIDERS: ATTEND Internal Medicine